=== PATIENT | male | born 2000 | race Caucasian/White ===

== ENCOUNTER 2019-04-22 21:13 | Observation (INO) ==
[2019-04-22] MEDS ORDERED: SODIUM CHLORIDE 0.9% 1000ML 1,000 ML IV ONE (21:24)
[2019-04-22 21:47] LABS: Basophils # (auto) 0.01 K/uL (0-0.2); Basophils % (auto) 0.1 %; Hematocrit (blood only) 45.4 % (42-52); Hemoglobin 16.3 g/dL (14.0-18.0); Immature Granulocytes # (auto) 0.03 K/uL (0.00-0.02); Immature Granulocytes % (auto) 0.3 %; Lymphocytes # (auto) 0.96 K/uL (1.2-3.4); Lymphocytes % (auto) 8.1 %; Mean Corpuscular Hemoglobin 30.2 pg (25-34); Mean Corpuscular Hgb Conc 35.9 g/dL (32-36); Mean Corpuscular Volume 84.1 fL (80-100); Mean Platelet Volume 11.5 fL (7.4-10.4); Monocytes # (auto) 0.83 K/uL (0.11-0.59); Neutrophils # (auto) 9.99 K/uL (1.4-6.5); Neutrophils % (auto) 84.5 %; Platelet Count 177 K/uL (130-400); RDW Coefficient of Variation 12.7 % (11.5-14.5); RDW Standard Deviation 38.1 fL (36.4-46.3); White Blood Count 11.82 K/uL (4.8-10.8)
[2019-04-22 22:06] LABS: Albumin Level 4.5 gm/dl (3.4-5.0); Bilirubin Direct 0.1 mg/dl (0-0.2); Calcium 9.4 mg/dl (8.5-10.1); Creatinine Clr Calc Pharmacy 116.5 ml/min; Est GFR (African American) 110.2; Est GFR (Non-African American) 95.1; Potassium 3.4 mmol/L (3.5-5.1)
[2019-04-22 22:09] LABS: Bilirubin,Total 0.6 mg/dl (0.2-1); Total Protein 8.2 gm/dl (6.4-8.2)
[2019-04-22] MEDS ORDERED: IOVERSOL 100ml IV PRN (22:12)
--- NOTE | 2019-04-22 22:29 | CT Scan Report ---
ABDOMEN AND PELVIS CT WITH IV CONTRAST CT DOSE: 372.64 mGy.cm HISTORY: Acute right lower quadrant abdominal pain rlq pain ro appy TECHNIQUE: Multiaxial CT images of the abdomen and pelvis were performed following the IV administrat ion of 94 cc of Optiray 320, A dose lowering technique was utilized adhering to the principles of AL ELIZABETH. COMPARISON STUDY: None. FINDINGS: Clear lung bases. No pneumatosis or pneumoperitoneum. Imaged inferior cardiac chambers are unremarkab le. The spleen, pancreas and gallbladder are unremarkable. Calcifications of the right adrenal gland suggests prior hemorrhage or infection. Unremarkable liver. Patency of the hepatic and portal veins. Kidneys, ureters, urinary bladder and prostate are unremarkable. Aorta and IVC are unremarkable. Ther e are a few nonspecific prominent para-aortic lymph nodes measuring up to 9 mm, likely reactive. Fluid-filled distended distal esophagus. No small bowel obstruction. Decompressed transverse colon. M oderate fecal retention of the cecum and ascending colon. Stool-filled terminal ileum. Fluid-filled d istended appendix with mucosal hyperemia measures up to 11 mm transversely. 4 mm appendicolith is not ed within the mid to distal appendiceal lumen. Study is limited without use of IV contrast. There is no evidence of perforation or drainable fluid collection. Mild periappendiceal inflammatory stranding . Soft tissues are unremarkable. The bones appear to be intact. IMPRESSION: 1. Limited exam without the use of enteric contrast. 2. Fluid-filled dilated appendix with small appendicolith and mild periappendiceal inflammatory stran ding is compatible with acute appendicitis. No evidence of perforation or drainable fluid collection. 3. No bowel obstruction. ACT 112: Negative or not required by law. The above report was generated using voice recognition software. It may contain grammatical, syntax o r spelling errors. Results electronically sent 04/22/2019 10:27 PM to: Jose Angel Latham Electronically signed by: Reno Logan M.D. 04/22/2019 10:27 PM
[2019-04-22] MEDS ORDERED: cefTRIAXone SODIUM 1,000 MG/50 ML BAG IV STA (22:32)
[2019-04-22] MEDS ORDERED: metroNIDAZOLE 500 MG/100 ML BAG IV STA (22:32)
--- NOTE | 2019-04-22 22:57 | Emergency Department Note ---
Entered by Jessika Mccray acting as a scribe for Jose Angel Latham History of Present Illness General Chief complaint: Abdominal Pain Stated complaint: ABDOMINAL PAIN, NAUSEA Time Seen by Provider: 04/22/19 21:20 Source: patient History of Present Illness Onset (ago): hour(s) (7) Location: abdomen Pain Consistency: + constant Maximum Pain Intensity: 6 Quality: + sharp Associated symptoms: + denies other symptoms (testicular pain, blood in urine or stools) and + nausea/vomiting (positive nausa, negative vomiting); no fev er/chills The patient is a 18 year old male who presents to the Emergency Room with complaints of constant sharp abdominal pain beginning 7 hours ago. Pain was located in the epigastric area and is radiated to his right side. The patient reports nausea, but no vomiting. He notes the pain started before the nausea. The patient denies fever, testicular pain, and blood in his urine or stools. He denies previous abdominal surgeries. Home Medications Home Medications Medication Instructions Recorded Confirmed Type Clindamycin Cleansing Pads 1 pad TOPICAL DAILY 04/22/19 04/22/19 History Allergies Allergy/AdvReac Type Severity Reaction Status Date / Time No Known Allergies Allergy Unverified 04/22/19 22:46 Past Med/Surg History Medical History No pertinent past medical history Surgical History No pertinent past surgical history Family History Other No pertinent family history Social History Preferred Language: Tuvaluan Feels Safe at Home: Yes Smoking Status: Never smoker Review of Systems See HPI for pertinent positives & negatives. and A total of 10 systems reviewed and were otherwise negative Physical Exam Vital Signs Vital Signs - 24 hr 04/22/19 21:15 Temperature 36.4 C L Temperature Source Oral Pulse Rate 94 H Respiratory Rate 18 Respiratory Effort / Characteristics Non-Labored Respiratory Depth Normal Blood Pressure 132/93 Blood Pressure Mean 106 Pulse Oximetry 98 Oxygen Delivery Method Room Air Sepsis Recent Fever Within 48 Hours No Sepsis Action Taken by Nursing No Action Required GENERAL: He is oriented to person, place, and time. He appears well-developed and well-nourished. He does not appear distressed. HENT: Exam performed. - Head: Normocephalic and atraumatic. - Right Ear: External ear normal. No mastoid tenderness. - Left Ear: External ear normal. No mastoid tenderness. - Mouth/Throat: The oropharynx is clear and moist. No trismus in the jaw. No dental abscesses or uvula swelling. No oropharyngeal exudate or tonsillar abscesses. EYES: Conjunctivae and EOM are normal. Pupils are equal, round, and reactive to light. Right eye exhibits no discharge. Left eye exhibits no discharge. No scleral icterus. NECK: Normal range of motion. Neck supple. No JVD present. No spinous process tenderness present. No carotid bruit present. No rigidity. No tracheal deviation and normal range of motion present. No Brudzinski's sign and no Kernig's sign noted. CV: Normal rate, regular rhythm, normal heart sounds and intact distal pulses. There is no peripheral edema. Palpable radial pulses bue. PULM/CHEST: Effort normal and breath sounds normal. No respiratory distress. No stridor. He has no wheezes. He has no rales. - Chest Wall: He exhibits no tenderness. ABD: The abdomen is soft. Bowel sounds are normal. He has no distension. No mass is present. no guarding, no Vasquez's sign and no tenderness at McBurney's point. Rovsig negative. Pain on palpation of the right lower quadrant. Rebound positive. MUSC/SKEL: Normal range of motion. There is no peripheral edema, tenderness or deformity. LYMPH: No cervical adenopathy. NEURO: He is alert and oriented to person, place, and time. He has normal strength. No cranial nerve deficit or sensory deficit. Coordination and gait normal. GCS eye subscore is 4. GCS verbal subscore is 5. GCS motor subscore is 6. Cerebellar tests wnl. SKIN: Skin is warm and dry. He is not diaphoretic. PSYCH: He has a normal mood and affect. Behavior is normal. Judgment and thought content normal. Course Course 2119: Past medical records reviewed. The patient was evaluated in room C04. A complete history and physical exam was performed. 2239: Vital signs stable. CT showed acute appendicitis. Patient was given Rocephin IV piggyback and Flagyl IV piggyback. I spoke with Dr. Rojas who agrees to come down and evaluate the patient. I informed the patient and his parents via his cell phone upon his request. They are in agreement and the patient will be evaluated by the surgery team and admitted for a potential appendectomy. Administered Medications Ioversol (Optiray 320 100ml) 94 ml IV ONCE PRN PRN Reason: Interaction Checking Stop: 04/26/19 22:11 Last Admin: 04/22/19 22:13 Dose: 94 ml Documented by: [id number] Discontinued Medications Sodium Chloride (Nss 1000ml) 1,000 mls @ 999 mls/hr IV .Q1H1M ONE Stop: 04/22/19 22:24 Last Infusion: 04/22/19 22:50 Dose: 0 mls/hr Documented by: [id number] Admin: 04/22/19 21:38 Dose: 999 mls/hr Documented by: [id number] Medical Decision Making Medical Records Attestation: I reviewed the patient's medical records. Home Medications Current Medication List: was personally reviewed by me Laboratory Data Attestation: I reviewed the patient's lab results. Result diagrams: 04/22/19 21:35 04/22/19 21:35 Lab Results 04/22/19 04/22/19 Range/Units 21:35 21:35 WBC 11.82 H (4.8-10.8) K/uL RBC 5.40 (4.7-6.1) M/uL Hgb 16.3 (14.0-18.0) g/dL Hct 45.4 (42-52) % MCV 84.1 (80-100) fL MCH 30.2 (25-34) pg MCHC 35.9 (32-36) g/dL RDW Std Deviation 38.1 (36.4-46.3) fL RDW Coeff of Mann 12.7 (11.5-14.5) % Plt Count 177 (130-400) K/uL MPV 11.5 H (7.4-10.4) fL Immature Gran % (Auto) 0.3 % Neut % (Auto) 84.5 % Lymph % (Auto) 8.1 % [place] % (Auto) 7.0 % Eos % (Auto) 0.0 % Baso % (Auto) 0.1 % Immature Gran # (Auto) 0.03 H (0.00-0.02) K/uL Neut # (Auto) 9.99 H (1.4-6.5) K/uL Lymph # (Auto) 0.96 L (1.2-3.4) K/uL [place] # (Auto) 0.83 H (0.11-0.59) K/uL Eos # (Auto) 0.00 (0-0.5) K/uL Baso # (Auto) 0.01 (0-0.2) K/uL Sodium 140 (136-145) mmol/L Potassium 3.4 L (3.5-5.1) mmol/L Chloride 108 H (98-107) mmol/L Carbon Dioxide 26 (21-32) mmol/L Anion Gap 6.0 (3-11) BUN 18 (7-18) mg/dl Creatinine 1.11 (0.6-1.4) mg/dl Est Cr Clr Drug Dosing 116.5 ml/min Est GFR ( Amer) 110.2 Est GFR (Non-Af Amer) 95.1 BUN/Creatinine Ratio 16.0 (10-20) Glucose 110 H (70-99) mg/dl Calcium 9.4 (8.5-10.1) mg/dl Total Bilirubin 0.6 (0.2-1) mg/dl Direct Bilirubin 0.1 (0-0.2) mg/dl AST 17 (15-37) U/L ALT 39 (12-78) U/L Alkaline Phosphatase 98 (45-117) U/L Total Protein 8.2 (6.4-8.2) gm/dl Albumin 4.5 (3.4-5.0) gm/dl Lipase 58 L (73-393) U/L Imaging Data Radiologist's Impression: Radiology results as stated below per my review and the radiologist's interpretation: ABDOMEN AND PELVIS CT WITH IV CONTRAST CT DOSE: 372.64 mGy.cm HISTORY: Acute right lower quadrant abdominal pain rlq pain ro appy TECHNIQUE: Multiaxial CT images of the abdomen and pelvis were performed following the IV administration of 94 cc of Optiray 320, A dose lowering technique was utilized adhering to the principles of ALARA. COMPARISON STUDY: None. FINDINGS: Clear lung bases. No pneumatosis or pneumoperitoneum. Imaged inferior cardiac chambers are unremarkable. The spleen, pancreas and gallbladder are unremarkable. Calcifications of the right adrenal gland suggests prior hemorrhage or infection. Unremarkable liver. Patency of the hepatic and portal veins. Kidneys, ureters, urinary bladder and prostate are unremarkable. Aorta and IVC are unremarkable. There are a few nonspecific prominent para-aortic lymph nodes measuring up to 9 mm, likely reactive. Fluid-filled distended distal esophagus. No small bowel obstruction. Decompressed transverse colon. Moderate fecal retention of the cecum and ascending colon. Stool-filled terminal ileum. Fluid-filled distended appendix with mucosal hyperemia measures up to 11 mm transversely. 4 mm appendicolith is noted within the mid to distal appendiceal lumen. Study is limited without use of IV contrast. There is no evidence of perforation or drainable fluid collection. Mild periappendiceal inflammatory stranding. Soft tissues are unremarkable. The bones appear to be intact. IMPRESSION: 1. Limited exam without the use of enteric contrast. 2. Fluid-filled dilated appendix with small appendicolith and mild periappendiceal inflammatory stranding is compatible with acute appendicitis. No evidence of perforation or drainable fluid collection. 3. No bowel obstruction. ACT 112: Negative or not required by law. The above report was generated using voice recognition software. It may contain grammatical, syntax or spelling errors. Results electronically sent 04/22/2019 10:27 PM to: Jose Angel Latham Electronically signed by: Reno Logan M.D. 04/22/2019 10:27 PM Blood Pressure Blood Pressure Findings: Elevated blood pressure Blood Pressure Disposition: further management by hospitalist [facility] Narrative Vital signs stable. CT showed acute appendicitis. Patient was given Rocephin IV piggyback and Flagyl IV piggyback. I spoke with Dr. Rojas who agrees to come down and evaluate the patient. I informed the patient and his parents via his cell phone upon his request. They are in agreement and the patient will be evaluated by the surgery team and admitted for a potential appendectomy. Impression & Plan Acute appendicitis Discharge Plan Visit Data Chief Complaint: Abdominal Pain Stated Complaint: ABDOMINAL PAIN, NAUSEA ED Provider: Jose Angel Latham Discharge Problem: Acute appendicitis Patient Disposition: Being Evaluated by Hospitalist Forms Stand Alone Forms: My Minuum Prescriptions Prescriptions: No Action Clindamycin Cleansing Pads 1 pad topical DAILY RF: 0 Referrals Referrals: [place] [Primary Care Provider] - Discharge Problem: Acute appendicitis Qualifiers: Acute appendicitis type: unspecified acute appendicitis type Qualified Code(s): K35.80 - Unspecified acute appendicitis The scribe's documentation has been prepared under my direction and personally reviewed by me in its entirety. I confirm that the note above accurately reflects all work, treatment, procedures, and medical decision making performed by me.
--- NOTE | 2019-04-22 23:23 | Surgery Consultation ---
Date of Consultation April 22, 2019 Assessment & Plan (1) Acute appendicitis: pt is a 18 year-old male who presents to Er with 8 hours acute RLQ pain, with nausea and vomiting. IMP: acute appendicitis, Plan, I recommend to do laparoscopic appendectomy, possible open, D/W benefits, risks and alternatives of the surgery, the risks - infection, bleeding, abscess, pt understood, he agrees with the surgery, I answered all questions, cefoxitin 2 gm iv, History of Present Illness History of Present Illness History of Present Illness General Chief complaint: Abdominal Pain Stated complaint: ABDOMINAL PAIN, NAUSEA Time Seen by Provider: 04/22/19 21:20 Source: patient History of Present Illness Onset (ago): hour(s) (7) Location: abdomen Pain Consistency: + constant Maximum Pain Intensity: 6 Quality: + sharp Associated symptoms: + denies other symptoms (testicular pain, blood in urine or stools) and + nausea/vomiting (positive nausa, negative vomiting); no fever/chills The patient is a 18 year old male who presents to the Emergency Room with complaints of constant sharp abdominal pain beginning 7 hours ago. Pain was located in the epigastric area and is radiated to his right side. The patient reports nausea, but no vomiting. He notes the pain started before the nausea. The patient denies fever, testicular pain, and blood in his urine or stools. He denies previous abdominal surgeries. I ( Bola Rojas MD ) reviewed pt's H/P , labs, CT scan with pt, pt is still have RLQ pain, pt is healthy in the past. Home Medications Home Medications Medication Instructions Recorded Confirmed Type Clindamycin Cleansing Pads 1 pad TOPICAL DAILY 04/22/19 04/22/19 History Allergies Allergy/AdvReac Type Severity Reaction Status Date / Time No Known Allergies Allergy Unverified 04/22/19 22:46 Past Med/Surg History Medical History No pertinent past medical history Surgical History No pertinent past surgical history Family History Other No pertinent family history Social History Preferred Language: Taiwanese Feels Safe at Home: Yes Smoking Status: Never smoker Review of Systems See HPI for pertinent positives & negatives. and A total of 10 systems reviewed and were otherwise negative Physical Exam Vital Signs Vital Signs - 24 hr 04/22/19 21:15 Temperature 36.4 C L Temperature Source Oral Pulse Rate 94 H Respiratory Rate 18 Respiratory Effort / Characteristics Non-Labored Respiratory Depth Normal Blood Pressure 132/93 Blood Pressure Mean 106 Pulse Oximetry 98 Oxygen Delivery Method Room Air Sepsis Recent Fever Within 48 Hours No Sepsis Action Taken by Nursing No Action Required Allergies Allergy/AdvReac Type Severity Reaction Status Date / Time No Known Allergies Allergy Unverified 04/22/19 22:46 Home Medications Home Medications Medication Instructions Recorded Confirmed Type Clindamycin Cleansing Pads 1 pad TOPICAL DAILY 04/22/19 04/22/19 History Patient History Medical History No pertinent past medical history Surgical History No pertinent past surgical history Family History Other No pertinent family history Social History Preferred Language: Taiwanese Feels Safe at Home: Yes Smoking Status: Never smoker Review of Systems Review of Systems: All systems reviewed & are unremarkable except as noted in HPI & below Constitutional: as per Subjective / HPI Eyes: as per Subjective / HPI Ear, Nose, Mouth, Throat: as per Subjective / HPI Respiratory: as per Subjective / HPI Cardiovascular: as per Subjective / HPI Gastrointestinal: as per Subjective / HPI Genitourinary: + as per Subjective / HPI Musculoskeletal: as per Subjective / HPI Integumentary: as per Subjective / HPI Neurologic: as per Subjective / HPI Psychiatric: as per Subjective / HPI Endocrine: as per Subjective / HPI Hematologic / Lymphatic: as per Subjective / HPI Allergy / Immunological: as per Subjective / HPI Physical Exam Constitutional: WD/WN, vitals as above well developed and well nourished Eyes: PERRL, conjunctivae normal, anicteric sclerae ENMT: external ear and nose normal, oropharynx normal Neck: trachea midline, no thyromegaly Respiratory: normal respiratory effort, lungs clear to auscultation normal respiratory effort Cardiovascular: RRR, no murmur, no edema Rate/Rhythm: regular rate and regular rhythm Heart Sounds: normal S1 and normal S2 Gastrointestinal (Abdomen): normal bowel sounds, soft, nontender, no hepatosplenomegaly Percussion/Palpation: + abdomen tender, + guarding and abdomen soft tenderness at RLQ, no rebound pain, BS + Musculoskeletal: no cyanosis or clubbing, extremities motor strength 5/5 Skin: no rashes, warm and dry Neurologic: patellar DTR's 2+ bilat, sensation intact Psychiatric: Orientation: alert and oriented x 3 Results & Data Vital Signs (Past 12 Hours) Vital Signs Temp Pulse Resp BP Pulse Ox 04/22/19 21:15 36.4 C L 94 H 18 132/93 98 Laboratory Results Abnormal lab results 04/22/19 04/22/19 Range/Units 21:35 21:35 WBC 11.82 H (4.8-10.8) K/uL MPV 11.5 H (7.4-10.4) fL Immature Gran # (Auto) 0.03 H (0.00-0.02) K/uL Neut # (Auto) 9.99 H (1.4-6.5) K/uL Lymph # (Auto) 0.96 L (1.2-3.4) K/uL [place] # (Auto) 0.83 H (0.11-0.59) K/uL Potassium 3.4 L (3.5-5.1) mmol/L Chloride 108 H (98-107) mmol/L Glucose 110 H (70-99) mg/dl Lipase 58 L (73-393) U/L Diagnostic Findings ABDOMEN AND PELVIS CT WITH IV CONTRAST CT DOSE: 372.64 mGy.cm HISTORY: Acute right lower quadrant abdominal pain rlq pain ro appy TECHNIQUE: Multiaxial CT images of the abdomen and pelvis were performed following the IV administration of 94 cc of Optiray 320, A dose lowering technique was utilized adhering to the principles of ALARA. COMPARISON STUDY: None. FINDINGS: Clear lung bases. No pneumatosis or pneumoperitoneum. Imaged inferior cardiac chambers are unremarkable. The spleen, pancreas and gallbladder are unremarkable. Calcifications of the right adrenal gland suggests prior hemorrhage or infection. Unremarkable liver. Patency of the hepatic and portal veins. Kidneys, ureters, urinary bladder and prostate are unremarkable. Aorta and IVC are unremarkable. There are a few nonspecific prominent para-aortic lymph nodes measuring up to 9 mm, likely reactive. Fluid-filled distended distal esophagus. No small bowel obstruction. Decompressed transverse colon. Moderate fecal retention of the cecum and ascending colon. Stool-filled terminal ileum. Fluid-filled distended appendix with mucosal hyperemia measures up to 11 mm transversely. 4 mm appendicolith is noted within the mid to distal appendiceal lumen. Study is limited without use of IV contrast. There is no evidence of perforation or drainable fluid collection. Mild periappendiceal inflammatory stranding. Soft tissues are unremarkable. The bones appear to be intact. IMPRESSION: 1. Limited exam without the use of enteric contrast. 2. Fluid-filled dilated appendix with small appendicolith and mild periappendiceal inflammatory stranding is compatible with acute appendicitis. No evidence of perforation or drainable fluid collection. 3. No bowel obstruction. (1) Acute appendicitis Acute appendicitis type: unspecified acute appendicitis type Qualified Code(s): K35.80 - Unspecified acute appendicitis
[2019-04-22] MEDS ORDERED: cefOXitin 2,000 MG/60 ML BAG IV STA (23:29)
--- NOTE | 2019-04-22 23:29 | History & Physical Bridge Note ---
Date of Service April 22, 2019 History & Physical Bridge Note I have examined the patient, reviewed the History & Physical and in the interval since the performance of the History & Physical I have noted the following changes of clinical significance: no changes noted
[2019-04-22] MEDS ORDERED: fentaNYL citrate 100 MCG/2 ML VIAL ONE (23:42)
[2019-04-22] MEDS ORDERED: PROPOFOL IV EMULSION 10 MG/ML 20 ML VIAL IV ONE (23:42)
[2019-04-22] MEDS ORDERED: ROCURONIUM BROMIDE 10 MG/ML 5 ML VIAL ONE (23:42)
[2019-04-22] MEDS ORDERED: MIDAZOLAM HCL 1 MG/ML 2ML VIAL ONE (23:42)
[2019-04-22] MEDS ORDERED: SUCCINYLCHOLINE CHLORIDE 20 MG/ML 10 ML VIAL ONE (23:42)
[2019-04-22] MEDS ORDERED: DEXAMETHASONE SOD INJ 4 MG/ML VIAL ONE (23:42)
[2019-04-22] MEDS ORDERED: NEOSTIGMINE METHYLSULFATE 5 MG/5 ML SYR ONE (23:42)
[2019-04-22] MEDS ORDERED: GLYCOPYRROLATE 0.2 MG/ML VIAL ONE (23:42)
[2019-04-22] MEDS ORDERED: LIDOCAINE HCL 2% 2 ML VIAL/AMP(20MG/ML) INFIL ONE (23:42)
[2019-04-22] MEDS ORDERED: LARYING-O-JET KIT (LTA) ONE (23:42)
[2019-04-22] MEDS ORDERED: ONDANSETRON INJ 2 MG/ML 2 ML VIAL ONE (23:42)
[2019-04-22] MEDS ORDERED: ONDANSETRON INJ 2 MG/ML 2 ML VIAL IV PRN (23:52)
[2019-04-22] MEDS ORDERED: HYDROmorphone INJ 1 MG/ML SYRINGE IV PRN (23:52)
[2019-04-22] MEDS ORDERED: fentaNYL citrate 100 MCG/2 ML VIAL IV PRN (23:52)
[2019-04-22] MEDS ORDERED: ePHEDrine sulfate 50 MG/ML AMP IV PRN (23:52)
[2019-04-22] MEDS ORDERED: ATROPINE SULFATE 0.1 MG/ML 10ML SYR IV PRN (23:52)
--- NOTE | 2019-04-22 23:54 | Anesthesiology Consultation ---
Date of Service April 22, 2019 Assessment & Plan (1) Encounter for pre-operative examination: Chart Review Chart Review: Acceptable Risk for Surgery and Patient NOT seen in Pre Admission Testing Consults Requested none History Surgery Operation Date: 04/22/19 23:50 Proposed Procedures p Laparoscopic Appendectomy - Bola Rojas MD Height/Weight Height: 6 ft Weight: 87 kg Allergies Allergy/AdvReac Type Severity Reaction Status Date / Time No Known Allergies Allergy Unverified 04/22/19 22:46 Medications Home Medications Medication Instructions Recorded Confirmed Last Taken Clindamycin Cleansing Pads 1 pad TOPICAL DAILY 04/22/19 04/22/19 Unknown Active Medications Generic Name Dose Route Start Last Admin Trade Name Freq PRN Reason Stop Dose Admin Cefoxitin Sodium 2,000 mg in 60 mls @ 100 mls/hr 04/22/19 23:29 04/22/19 23:35 Mefoxin IV 04/23/19 00:04 100 mls/hr NOW STA Administration Ioversol 94 ml 04/22/19 22:12 04/22/19 22:13 Optiray 320 100ml IV 04/26/19 22:11 94 ml ONCE PRN Administration Interaction Checking Past Medical History Medical History No pertinent past medical history Exercise / Class Metabolic Activity 1 > 8 Run/Swim/Ski/Tennis Past Family History Family History Other No pertinent family history Past Surgical History Surgical History No pertinent past surgical history Past Anesthesia History No Hx of Anesthesia Complications and No Family Hx of Anesthesia Complications History of PONV No Hx of PONV and No Hx of Motion Sickness Social History Smoking Status: Never smoker Do You Dip or Chew Tobacco: No Hx Alcohol Use: No Hx Substance Use: No Physical Exam Vital Signs Last Vital Signs Temp 36.4 C L 04/22/19 21:15 Pulse 91 H 04/22/19 23:32 Resp 18 04/22/19 21:15 BP 121/77 04/22/19 23:32 Pulse Ox 99 04/22/19 23:32 Testing Laboratory Results 04/22/19 21:35 04/22/19 21:35
[2019-04-23] MEDS ORDERED: LIDOCAINE HCL 1% 20 ML VIAL ONE (00:14)
[2019-04-23] MEDS ORDERED: BUPIVACAINE 0.5 % 5 MG/1 ML MPF 30ML VIAL ONE (00:14)
[2019-04-23] MEDS ORDERED: DiphenhydrAMINE HCL 50 MG/ML VIAL ONE (00:31)
[2019-04-23] MEDS ORDERED: ONDANSETRON INJ 2 MG/ML 2 ML VIAL ONE (00:41)
[2019-04-23] MEDS ORDERED: BACITRACIN OINT 15 GM TUBE ONE (00:47)
--- NOTE | 2019-04-23 00:52 | Post Operative Brief Note ---
Immediate Post Op Note v1 Date of Surgery April 23, 2019 Pre & Post Diagnosis Operation Date: 04/22/19 23:50 Pre-Op Diagnosis: Acute Appendicitis Post-Op Diagnosis: Acute Appendicitis I identified the patient and participated in the time-out.: Yes Procedure Operation Date: 04/22/19 23:50 Actual Procedures p Laparoscopic Appendectomy(Not Applicable) - Bola Rojas MD Surgeon Bola Rojas MD Vice President Of Compliance surgical sales representative Estimated Blood Loss 5 Findings Consistent with Post-Op Diagnosis Fluids 600ml Anesthesia Type General Complications none Disposition Accompanied Patient To Recovery: Yes Disposition: Recovery Room Overlapping Procedure I was immediately available: during the entire case.
[2019-04-23] MEDS ORDERED: ONDANSETRON INJ 2 MG/ML 2 ML VIAL IV PRN (00:58)
--- NOTE | 2019-04-23 01:32 | Anesthesiology Progress Note ---
Date of Service April 23, 2019 Anesthesia Post Procedure Vital Signs Vital Signs: Temp Pulse Pulse Resp BP BP Pulse Ox 04/23/19 01:24 36.6 C 90 16 110/61 96 04/23/19 01:14 36.6 C 86 16 112/69 98 04/22/19 23:32 91 H 121/77 99 04/22/19 21:15 36.4 C L 94 H 18 132/93 98 Pain Intensity Abdomen: Pain Intensity: 6 Transfer of Care Handoff Completed per policy Notes Mental Status: alert / awake / arousable and participated in evaluation Patient Amnestic to Procedure: Yes Nausea / Vomiting: adequately controlled Pain: adequately controlled Airway Patency, RR, SpO2: stable & adequate BP & HR: stable & adequate Hydration State: stable & adequate Anesthetic Complications: no major complications apparent and Pt Satisfied with anesthetic care
[2019-04-23] MEDS ORDERED: LACTATED RINGER'S 1,000 ML IV SCH (01:54)
[2019-04-23] MEDS ORDERED: HYDROmorphone INJ 0.5 MG/0.5 ML SYR IV PRN (01:54)
[2019-04-23] MEDS ORDERED: OXYCODONE/ACETAMINOPHEN 5mg/325mg TAB PO PRN (01:54)
[2019-04-23] MEDS ORDERED: INFLUENZA VIRUS QUAD VACCINE 0.5 ML SYR IM ONE (02:09)
[2019-04-23] MEDS ORDERED: INFLUENZA ADMINISTRATION CHARGE ONE (02:09)
--- NOTE | 2019-04-23 02:54 | Operative Report (OR) ---
DATE OF OPERATION: 04/23/2019 PREOPERATIVE DIAGNOSIS: Acute appendicitis. POSTOPERATIVE DIAGNOSIS: Acute appendicitis. PROCEDURE: Laparoscopic appendectomy. SURGEON: Bola Rojas MD. ANESTHESIA: General. ESTIMATED BLOOD LOSS: About 5 mL. FINDINGS: Acute appendicitis. COMPLICATIONS: None. INDICATIONS FOR THE PROCEDURE: This is a 18-year-old gentleman who presented with acute right lower quadrant pain. The patient had a CT scan diagnosis of acute appendicitis. I recommended to do laparoscopic appendectomy, possible open. I did talk to the patient about the benefit, the risk, alternate procedure. I indicated the risks may include but not limited such as bleeding, infection, abscess, injury to the bowel. The patient understands. He signed informed consent and I answered all questions. DETAILS OF PROCEDURE: We brought the patient to the OR, put the patient in the supine position. The patient received SCD on bilateral legs to prevent DVT. Also, patient received 2 g cefoxitin IV for prophylactic antibiotic. The patient received general anesthesia without difficulty. The abdomen was appropriately draped in routine sterile fashion. After time out, I injected local anesthesia by using 1% lidocaine mixed with 0.5% Marcaine just above umbilical. Then, I made a small incision just above umbilicus, opened fascia and opened peritoneum under direct vision, put a Belkis trocar in, connected to CO2 to create pneumoperitoneum. Flow rate is 6 liter per minute. Pressure not more than 14 mmHg. Once we get a nice pneumoperitoneum, we put the camera in, looked around the abdomen, shows normal finding on the small bowel, large bowel; however, appendix shows significant inflammation enlarged, confirmed diagnosis of acute appendicitis. Then, we put another two 5 mm trocar on the left lower quadrant area. Then, we used the harmonic to take down the appendiceal, rechecked, no active bleeding. Then, I used a 45 mm Endo-DOUG staple for transection on the base of the appendix, rechecked the staple line intact and no leak, no active bleeding. Then, we removed the appendix through the catch bag. Then, we reinserted Belkis trocar in, connected to CO2 to create pneumoperitoneum, again looked around the abdomen, no active bleeding, no leak from the staple line. Then, we removed all trocar under direct vision. No active bleeding from the trocar sites. Pneumoperitoneum was released. Now, closed the umbilical incision, fascial layer by using 0 Vicryl [id number] x2, closed subcutaneous layer by using 2-0 Vicryl interrupted layer, closed skin by using 4-0 Vicryl continuous running, closed another two 5 mm trocar site skin only by using 4-0 Vicryl. Then, we put the dressing on. The patient tolerated the procedure well. All instrument, needle and sponge count were correct x2 at the end the case. The patient transferred to recovery room in stable condition. Specimen sent to pathology. After procedure, I did call the patient's father about the OR finding and procedure we did. He understands. I attest to the content of the Intraoperative Record and any orders documented therein. Any exceptions are noted below. JOSÉ
--- NOTE | 2019-04-23 08:21 | Anesthesiology Progress Note ---
Date of Service April 23, 2019 Anesthesia Post Procedure Vital Signs Vital Signs: Temp Pulse Pulse Resp BP BP Pulse Ox 04/23/19 07:38 36.6 C 90 16 96/59 L 98 04/23/19 04:50 36.7 C 90 16 104/63 98 04/23/19 03:50 36.7 C 94 H 16 100/61 96 04/23/19 02:47 37.1 C 82 16 114/67 95 04/23/19 02:20 37.1 C 84 16 113/69 96 04/23/19 01:58 36.4 C L 86 16 118/67 98 04/23/19 01:35 36.6 C 83 16 109/56 L 98 04/23/19 01:24 36.6 C 90 16 110/61 96 04/23/19 01:14 36.6 C 86 16 112/69 98 04/22/19 23:32 91 H 121/77 99 04/22/19 21:15 36.4 C L 94 H 18 132/93 98 Pain Intensity Abdomen: Pain Intensity: 3 Notes Mental Status: alert / awake / arousable and participated in evaluation Patient Amnestic to Procedure: Yes Nausea / Vomiting: adequately controlled Pain: adequately controlled Airway Patency, RR, SpO2: stable & adequate BP & HR: stable & adequate Hydration State: stable & adequate Anesthetic Complications: no major complications apparent and Pt Satisfied with anesthetic care
[2019-04-23] MEDS ORDERED: CLINDAMYCIN TOP SCH (09:00)
[2019-04-23] MEDS ORDERED: ACETAMINOPHEN 325 MG TAB PO PRN (09:21)
[2019-04-23] MEDS ORDERED: IBUPROFEN 600 MG TAB PO PRN (09:21)
--- NOTE | 2019-04-23 09:24 | Surgery Progress Note ---
Date of Service April 23, 2019 Assessment & Plan (1) Acute appendicitis: POD # 1 s/p laparoscopic appendectomy -vital stable, afebrile -preop pain resolved, post op soreness at incisions - tolerating clears Plan: Advance to regular diet PO Tylenol and Ibuprofen prn pain encouraged to ambulate hallway d/c IV fluids TEDS to be sent home with patient for his traveling Discharge home this afternoon Discharge instructions reviewed f/u surgical office in [address] Rojas has seen patient, agrees with above. Subjective feeling well soreness at incision sites, preop pain resolved tolerated clear liquids, no n/v urinating well ambulated to bathroom Physical Exam Constitutional: WD/WN, vitals as above no acute distress Gastrointestinal (Abdomen): Inspection/Auscultation: abdomen normal to inspection; abdomen not distended Percussion/Palpation: + abdomen tender (mild at incision sites) and abdomen soft; no guarding and abdomen not rigid Skin: no rashes, warm and dry Psychiatric: A+Ox3, euthymic affect Results & Data Vital Signs (Past 12 Hours) Vital Signs Temp Pulse Resp BP Pulse Ox 04/23/19 07:38 36.6 C 90 16 96/59 L 98 04/23/19 04:50 36.7 C 90 16 104/63 98 04/23/19 03:50 36.7 C 94 H 16 100/61 96 04/23/19 02:47 37.1 C 82 16 114/67 95 04/23/19 02:20 37.1 C 84 16 113/69 96 04/23/19 01:58 36.4 C L 86 16 118/67 98 04/23/19 01:35 36.6 C 83 16 109/56 L 98 04/23/19 01:24 36.6 C 90 16 110/61 96 04/23/19 01:14 36.6 C 86 16 112/69 98 04/22/19 23:32 91 H 121/77 99 Laboratory Results 04/22/19 04/22/19 Range/Units 21:35 21:35 WBC 11.82 H (4.8-10.8) K/uL RBC 5.40 (4.7-6.1) M/uL Hgb 16.3 (14.0-18.0) g/dL Hct 45.4 (42-52) % MCV 84.1 (80-100) fL MCH 30.2 (25-34) pg MCHC 35.9 (32-36) g/dL RDW Std Deviation 38.1 (36.4-46.3) fL RDW Coeff of Mann 12.7 (11.5-14.5) % Plt Count 177 (130-400) K/uL MPV 11.5 H (7.4-10.4) fL Immature Gran % (Auto) 0.3 % Neut % (Auto) 84.5 % Lymph % (Auto) 8.1 % Sevier % (Auto) 7.0 % Eos % (Auto) 0.0 % Baso % (Auto) 0.1 % Immature Gran # (Auto) 0.03 H (0.00-0.02) K/uL Neut # (Auto) 9.99 H (1.4-6.5) K/uL Lymph # (Auto) 0.96 L (1.2-3.4) K/uL Sevier # (Auto) 0.83 H (0.11-0.59) K/uL Eos # (Auto) 0.00 (0-0.5) K/uL Baso # (Auto) 0.01 (0-0.2) K/uL Sodium 140 (136-145) mmol/L Potassium 3.4 L (3.5-5.1) mmol/L Chloride 108 H (98-107) mmol/L Carbon Dioxide 26 (21-32) mmol/L Anion Gap 6.0 (3-11) BUN 18 (7-18) mg/dl Creatinine 1.11 (0.6-1.4) mg/dl Est Cr Clr Drug Dosing 116.5 ml/min Est GFR ( Amer) 110.2 Est GFR (Non-Af Amer) 95.1 BUN/Creatinine Ratio 16.0 (10-20) Glucose 110 H (70-99) mg/dl Calcium 9.4 (8.5-10.1) mg/dl Total Bilirubin 0.6 (0.2-1) mg/dl Direct Bilirubin 0.1 (0-0.2) mg/dl AST 17 (15-37) U/L ALT 39 (12-78) U/L Alkaline Phosphatase 98 (45-117) U/L Total Protein 8.2 (6.4-8.2) gm/dl Albumin 4.5 (3.4-5.0) gm/dl Lipase 58 L (73-393) U/L (1) Acute appendicitis Acute appendicitis type: unspecified acute appendicitis type Qualified Code(s): K35.80 - Unspecified acute appendicitis
--- NOTE | 2019-04-26 09:09 | Discharge Summary ---
Date of Service April 26, 2019 Admission HPI Per Admitting Provider The patient is a 18 year old male who presents to the Emergency Room with complaints of constant sharp abdominal pain beginning 7 hours ago. Pain was located in the epigastric area and is radiated to his right side. The patient reports nausea, but no vomiting. He notes the pain started before the nausea. The patient denies fever, testicular pain, and blood in his urine or stools. He denies previous abdominal surgeries. I ( Bola Rojas MD ) reviewed pt's H/P , labs, CT scan with pt, pt is still have RLQ pain, pt is healthy in the past. Principal Diagnosis Acute appendicitis Discharge Data Allergies Allergy/AdvReac Type Severity Reaction Status Date / Time No Known Allergies Allergy Unverified 04/22/19 22:46 Consultations 04/22/19 22:36 ED Decision to Admit Stat Procedures Performed Operation Date: 04/22/19 23:50 Actual Procedures p Laparoscopic Appendectomy(Not Applicable) - Bola Rojas MD Ordered Studies 04/22/19 21:25 CT abd pelvis IV con only Stat Hospital Course (1) Acute appendicitis: Patient was taken to operating room from emergency department for laparoscopic appendectomy possible open by Dr. Rojas. Patient found to have acute appendicitis without perforation or abscess. Patient tolerated procedure well and was transferred to recovery then to medical/surgical floor for postoperative care. His diet was advanced to clear liquids. PO Percocet prn pa in was ordered. Activity as tolerated. POD # 1 vitals stable, afebrile, preop pain resolved, post op soreness at incisions, tolerating clears. Diet was advanced to regular diet. Encouraged to ambulate. Patient was evaluated later in the morning and tolerated regular diet. Patient was advised on discharge instructions and travel recommendations. Patient was discharged home on POD # 1 in stable condition. Total Time Total Time Spent Total Time Spent (In Minutes): 20 Total Time Includes: Examination of the Patient, Discharge Planning and Medication Reconciliation Discharge Plan Discharge Items Patient Disposition: Home - Self-Care Reason For Visit: ACUTE APPENDICITIS Discharge Diagnosis: same Activity: Per Instructions section Non-emergency contact: Surgeon Call non-emergency contact if: you have any medication questions, your pain is not controlled, your pain is worsening, your pain is concerning for you, you have a fever, your temperature is above 101, your wound has increased redness, your wound has increased drainage and your wound pain has increased Follow-up/Referrals: [facility] [Primary Care Provider] - 05/03/19 2:40 pm Diet: Regular Addtl Attending Provider Instructions: Post-Surgical ~Discharge Instructions Activity Recommendations: - lifting limitation: (20 pounds for 4 weeks), - exercise/sex/sports limit: (nonstrenuous until cleared by surgeon), - driving or machine use limit: (none while taking pain medication or until pain free) - Shower/bathe limit: (may shower beginning Friday,no submerging incisions underwater for 2 weeks) Diet: - Resume previous diet SPECIAL CARE INSTRUCTIONS: - May shower on Friday. Remove outer dressings and then shower. Let water run over area and pat dry. - Leave steri strips on for one week and then remove. - Call the surgeon's office with any questions or concerns - - (ex. temperature higher than 101 degrees F, excessive bleeding or pain). MEDICATIONS: - Resume previous medications unless instructed otherwise by your surgeon. - Ibuprofen 600 mg every 6 hours with food - Tylenol 650 mg every 6 hours as needed FOLLOW UP VISIT: - If not already scheduled, please call the office to schedule a two week follow-up appointment. Office number Will send you home with GENARO stockings to wear during your air and car travel. Would recommend stopping every hour during car travel to walk 5-10 minutes. If possible walk aisle on flight, drink plenty of water, and move legs frequently. Pending Studies at Discharge: Yes (appendix pathology, will be reviewed at follow-up visit) Stand-Alone Forms: My [facility] [employer], Work/School Release (Inpt), Smoking Cessation Medications and DC Order Prescriptions: Continued Clindamycin Cleansing Pads 1 pad topical DAILY RF: 0 Discharge Orders: Discharge Order (Routine); Ordered 04/23/19 Ordered By: Tiffany Kellogg/Other Patient Handouts: Surgery Prevent DVT After Admission Data Admit Date/Time: 04/23/19 00:58 Attending Provider: Bola Rojas Admit Provider: Bola Rojas Primary Care Provider: [facility] Other Providers: Bola Rojas Other Interventions: Discharge Summary Assessment (RN) Last Done: 04/23/19 12:50 DC Date/Time DO NOT enter until pt leaves facility: 04/23/19 14:25
== END 2019-04-23 14:25 | disposition home or self-care (01) ==
LOC: ED 21:13 → ASU 23:40 → 3N 23:40
DX: K35.80 Unspecified acute appendicitis